=== PATIENT | female | born 2000 | race American Indian/Alaskan Native ===

== ENCOUNTER 2021-11-25 12:43 | Emergency (ER) | payer MEDICAID ==
[2021-11-25] MEDS ORDERED: HYOSCYAMINE SUBL 0.125 MG TAB SL ONE (15:08)
[2021-11-25] MEDS ORDERED: ONDANSETRON 4 MG ODT TAB PO ONE (15:08)
--- NOTE | 2021-11-25 15:12 | Emergency Department Report ---
ED Abdominal Pain HPI - General Chief Complaint: Abdominal Pain Stated Complaint: NAUSEA/ABDOMINAL PAIN/FEVER Time Seen by Provider: 11/25/21 15:00 Source: patient Mode of arrival: Ambulatory Limitations: No Limitations - History of Present Illness Initial Comments: Patient presents with a 3 to 4-week history of intermittent abdominal pain associate with nausea and vomiting. She has also had diarrhea. Around Jon, she actually became ill. She ultimately tested positive for coronavirus. Her boyfriend gave it to her. She had GI symptoms then. She has had persistent GI symptoms intermittently. She states that every day she has episodes of sharp stabbing abdominal pain associate with nausea and vomiting. The diarrhea has slowed down. She has not had hematemesis or coffee-ground emesis. There is no melenic stool. She does not have ongoing fevers or chills. She is here for evaluation and treatment because she just does not feel well. She feels weak in addition. - Related Data Allergies Allergy/AdvReac Type Severity Reaction Status Date / Time No Known Allergies Allergy Verified 11/25/21 13:20 ED Review of Systems ROS: Stated complaint: NAUSEA/ABDOMINAL PAIN/FEVER Other details as noted in HPI Comment: All other systems reviewed and negative Constitutional: denies: fever Eyes: denies: eye pain ENT: denies: throat pain Respiratory: denies: cough Cardiovascular: denies: chest pain Endocrine: denies: unexplained weight loss Gastrointestinal: as per HPI Genitourinary: abnormal menses (Patient reports having chronically heavy menses with heavy flow for 8 to 9 days.). denies: dysuria Musculoskeletal: denies: back pain Skin: denies: rash Neurological: denies: headache Hematological/Lymphatic: denies: easy bruising ED Past Medical Hx - Past Medical History Hx Sickle Cell Disease: Yes (Sickle cell trait) Additional medical history: Chronic anemia due to heavy menstruation - Family History Family history: no significant, other (Sickle cell disease) ED Physical Exam - General Limitations: No Limitations, Other (Pulse ox noted and normal) General appearance: alert, in no apparent distress - Head Head exam: Present: atraumatic, normocephalic - Eye Eye exam: Present: normal appearance, EOMI. Absent: scleral icterus - ENT ENT exam: Present: mucous membranes dry, normal external ear exam - Neck Neck exam: Present: normal inspection. Absent: meningismus - Respiratory Respiratory exam: Present: normal lung sounds bilaterally. Absent: respiratory distress - Cardiovascular Cardiovascular Exam: Present: regular rate, normal rhythm - GI/Abdominal GI/Abdominal exam: Present: soft. Absent: distended, tenderness - Extremities Exam Extremities exam: Present: normal capillary refill - Back Exam Back exam: Absent: CVA tenderness (R), CVA tenderness (L) - Neurological Exam Neurological exam: Present: alert, oriented X3, CN II-XII intact, normal gait. Absent: motor sensory deficit - Psychiatric Psychiatric exam: Present: normal affect, normal mood - Skin Skin exam: Present: warm, dry ED Course Vital Signs 11/25/21 13:17 Temperature 99 F Pulse Rate 91 H Respiratory 20 Rate Blood Pressure 178/110 [Left] O2 Sat by Pulse 100 Oximetry - Reevaluation(s) Reevaluation #1: 11/25/21 15:10 Labs and medications were ordered. Old records reviewed. Reevaluation #2: 11/25/21 17:35 Ultrasound was noted. UA is pending. ED Medical Decision Making - Lab Data Result diagrams: 11/25/21 15:21 11/25/21 15:21 - Radiology Data Radiology results: report reviewed - Medical Decision Making Patient present with abdominal symptoms. She thought these could be related to COVID or some other viral infection. She was found to be . Patient does not have evidence of ectopic . She did not have symptoms suggestive of appendicitis. There is no peritoneal finding on exam. She did not have tenderness in the right upper quadrant or upper abdomen suggestive of biliary disease. Patient did not have dysuria or frequency. She had no flank tenderness to suggest pyelonephritis. Patient was referred to her facility security officer for recheck and repeat evaluation of her laboratory studies. Critical Care Time: No Critical care attestation.: If time is entered above; I have spent that time in minutes in the direct care of this critically ill patient, excluding procedure time. ED Disposition Clinical Impression: Generalized abdominal pain Nausea & vomiting Qualifiers: Vomiting type: unspecified Qualified Code(s): R11.2 - Nausea with vomiting, unspecified Qualifiers: Weeks of gestation: 11 weeks Qualified Code(s): Z3A.11 - 11 weeks gestation of Disposition: HOME / SELF CARE / HOMELESS Is pt being admited?: No Condition: Stable Instructions: Nausea, Adult, and Travel, Abdominal Pain During , [id number], First Trimester of , [id number], How a Baby Grows During , Eating Plan for Women, Abdominal Pain (ED) Additional Instructions: Drink plenty water. Do not insert anything into the vagina until your symptoms have resolved. Follow-up with CORRECTIONAL SUBSTANCE ABUSE COUNSELOR for recheck. Return for problems. Use Tylen ol only for pain. Referrals: PRIMARY CAREMD [Primary Care Provider] - 3-5 Days CHAPARRO HERRERA MD [Staff Physician] - 3-5 Days
[2021-11-25 15:35] LABS: Hematocrit 32.8 % (30.3-42.9); Hemoglobin 10.3 gm/dl (10.1-14.3); Mean Corpuscular HGB Conc 31 % (30-34); Platelet Count 335 K/mm3 (140-440); Red Blood Count 5.62 M/mm3 (3.65-5.03)
[2021-11-25 15:37] LABS: Mean Corpuscular Volume 58 fl (79-97); Red Cell Distribution Width 22.4 % (13.2-15.2)
[2021-11-25 16:00] LABS: Alanine Aminotransferase 10 units/L (7-56); Albumin 4.8 g/dL (3.9-5); Blood Urea Nitrogen 7 mg/dL (7-17); Calcium 9.6 mg/dL (8.4-10.2); Hemolysis Index 0
[2021-11-25 16:17] LABS: BUN/Creatinine Ratio 12
[2021-11-25] MEDS ORDERED: POTASSIUM CHLORIDE ER 20 MEQ TAB PO ONE ×2 (16:18→20:41)
--- NOTE | 2021-11-25 16:44 | Ultrasound Report ---
ULTRASOUND OBSTETRIC Indication: Findings: There is a single, living intrauterine . Addis-rump length = 5.0 cm = 11 weeks, 5 day(s). heart rate is 167 beats per minute. Right ovary is normal. Left ovary is not visualized. No focal adnexal abnormality.. There is no free fluid. Impression: Single, living intrauterine with estimated sonographic age of 11 weeks, 5 day(s). Signer Name: Hernan Farley MD Signed: 11/25/2021 4:40 PM Workstation Name: [id number]
[2021-11-25 19:44] LABS: Bilirubin,Urine NEG (Negative); Blood,Urine NEG (Negative); Color,Urine Yellow (Yellow); Urobilinogen,Urine < 2.0 mg/dL (<2.0)
[2021-11-25 21:02] VITALS: BP 130/80
== END 2021-11-25 21:02 | disposition home or self-care (01) ==
LOC: ED 12:43
DX: O26.891 Other specified pregnancy related conditions, first trimester (principal); O21.8 Other vomiting complicating pregnancy; Z3A.11 11 weeks gestation of pregnancy; R10.9 Unspecified abdominal pain; D57.1 Sickle-cell disease without crisis
CPT/HCPCS: 36415; 76801; 80053; 81001; 83690; 84702; 84703; 85027; 99284; J3490; Q0162

== ENCOUNTER 2022-02-03 21:08 | Emergency (ER) | payer MEDICAID ==
[2022-02-03] MEDS ORDERED: METOCLOPRAMIDE 10 MG TAB PO ONE (21:17)
[2022-02-03] MEDS ORDERED: ACETAMINOPHEN 325 MG TAB PO ONE (21:17)
--- NOTE | 2022-02-03 21:18 | Emergency Department Report ---
ED General Adult HPI - General Chief complaint: Vaginal Bleeding Stated complaint: VAGINAL BLEEDING/AB PAIN/HEADACHES Time Seen by Provider: 02/03/22 21:16 Source: patient, RN notes reviewed, old records reviewed Mode of arrival: Ambulatory Limitations: No Limitations - History of Present Illness Initial comments: During the history and physical examination, I am chaperoned by nurse Dheeraj Jeff This is a 21-year-old female. She is 2, para 1. She reports a history of sickle cell disease. [place] She currently does not have a high risk [facility] physician. She presents to the ER today with a complaint of lower abdominal cramping and vaginal bleeding without dysuria. This has been going on for about 2 days. No fever, positive nausea, no vomiting, no recent antibiotic use, reports no illicit drug use. Reports one sexual partner with no history of STI. She endorses no other complaints of headache. The headache is bitemporal. The headache is intermittent over the past week. The headache is not sudden or thunderclap in nature. The headache is not maximal in intensity. The headache is not described as the worst headache of her life. Patient believes she has taken medication at home for her symptoms, but does not recall the name of the medications. -: days(s) Location: head, abdomen Quality: aching Consistency: intermittent Improves with: none Worsens with: none - Related Data Previous Rx's Medication Instructions Recorded Last Taken Type Metoclopramide [Reglan] 10 mg PO ACHS PRN #90 tablet 11/25/21 Unknown Rx Acetaminophen [Non-Aspirin Extra 500 mg PO Q6HR PRN #30 tablet 02/03/22 Unknown Rx Strength] Doxylamine Succinate/Vit B6 1 each PO QHS PRN #30 tablet. 02/03/22 Unknown Rx [Paige Cohen 10-10 mg Tablet] Ferrous Sulfate [Feosol 325 MG tab] 325 mg PO BID #60 tablet 02/03/22 Unknown Rx Bryan Root [Bryan] 250 mg PO QID PRN #30 capsule 02/03/22 Unknown Rx Metoclopramide [Reglan] 10 mg PO QID PRN #30 tablet 02/03/22 Unknown Rx Vit-Fe Fumar-FA [ 1 tab PO QDAY #30 tablet 02/03/22 Unknown Rx Vitamin] Allergies Allergy/AdvReac Type Severity Reaction Status Date / Time No Known Allergies Allergy Verified 11/25/21 13:20 ED Review of Systems ROS: Stated complaint: VAGINAL BLEEDING/AB PAIN/HEADACHES Other details as noted in HPI Constitutional: denies: fever Eyes: denies: eye discharge, vision change ENT: denies: throat pain, epistaxis Respiratory: denies: cough Cardiovascular: denies: chest pain, syncope Gastrointestinal: as per HPI, abdominal pain, nausea. denies: melena, hematochezia Genitourinary: other (Reports vaginal bleed). denies: dysuria Neurological: headache. denies: weakness ED Past Medical Hx - Past Medical History Hx Sickle Cell Disease: Yes (Sickle cell trait) Additional medical history: Chronic anemia due to heavy menstruation - Medications Home Medications: Home Medications Medication Instructions Recorded Confirmed Last Taken Type Metoclopramide [Reglan] 10 mg PO ACHS PRN #90 tablet 11/25/21 Unknown Rx Acetaminophen [Non-Aspirin Extra 500 mg PO Q6HR PRN #30 tablet 02/03/22 Unknown Rx Strength] Doxylamine Succinate/Vit B6 1 each PO QHS PRN #30 tablet. 02/03/22 Unknown Rx [Diclegis Dr 10-10 mg Tablet] Ferrous Sulfate [Feosol 325 MG tab] 325 mg PO BID #60 tablet 02/03/22 Unknown Rx Bryan Root [Bryan] 250 mg PO QID PRN #30 capsule 02/03/22 Unknown Rx Metoclopramide [Reglan] 10 mg PO QID PRN #30 tablet 02/03/22 Unknown Rx Vit-Fe Fumar-FA [ 1 tab PO QDAY #30 tablet 02/03/22 Unknown Rx Vitamin] ED Physical Exam - General Limitations: No Limitations General appearance: alert, in no apparent distress - Head Head exam: Present: atraumatic, normocephalic - Eye Eye exam: Present: normal appearance, PERRL, EOMI. Absent: nystagmus - ENT ENT exam: Present: normal exam, mucous membranes moist, TM's normal bilaterally, normal external ear exam - Neck Neck exam: Present: normal inspection, full ROM. Absent: tenderness, meningismus - Respiratory Respiratory exam: Present: normal lung sounds bilaterally. Absent: respiratory distress, wheezes, rales, rhonchi, stridor, decreased breath sounds - Cardiovascular Cardiovascular Exam: Present: regular rate, normal rhythm, normal heart sounds. Absent: bradycardia, tachycardia, irregular rhythm, systolic murmur, diastolic murmur, rubs, gallop - GI/Abdominal GI/Abdominal exam: Present: soft, normal bowel sounds. Absent: distended, tenderness, guarding, rebound, rigid, pulsatile mass - External exam: Present: normal external exam, other (Chaperoned by nurse Osiris Jeff). Absent: erythema, swelling, lesions, lacerations, ecchymosis, bleeding - Extremities Exam Extremities exam: Present: normal inspection, full ROM, other (2+ pulses noted in the bilateral upper and lower extremities. There is no palpable cord. negative Homans sign. Muscular compartments are soft. The pelvis is stable.). Absent: pedal edema, calf tenderness - Back Exam Back exam: Present: normal inspection, full ROM. Absent: tenderness, CVA tenderness (R), CVA tenderness (L), paraspinal tenderness, vertebral tenderness - Neurological Exam Neurological exam: Present: alert, oriented X3, normal gait, other (No facial droop. Tongue midline. Extraocular movements intact bilaterally. Facial sensation intact to light touch in V1, V2, V3 distribution bilaterally. 5 and a 5 strength in 4 extremities. Sensation intact to light touch in 4 extremiti es.). Absent: motor sensory deficit - Psychiatric Psychiatric exam: Present: normal affect, normal mood - Skin Skin exam: Present: warm, dry, intact, normal color. Absent: rash ED Course Vital Signs 02/03/22 02/03/22 02/03/22 21:14 21:15 21:25 Temperature 98.2 F Pulse Rate 104 H Respiratory 16 18 Rate Blood Pressure 117/79 O2 Sat by Pulse 100 97 Oximetry - Reevaluation(s) Reevaluation #1: 02/03/22 22:50 Differential diagnosis, including but not limited to: Migraine headache, tension headache, cluster headache, sleep deprivation, excessive cell phone use, placenta previa, miscarriage Assessment and plan: 21-year-old female, with multiple complaints. In terms of her complaint of abdominal cramping and vaginal bleeding, her abdomen is soft and benign, without rebound, guarding or peritoneal signs. She has no vaginal bleeding on my examination. Ultrasound confirms IUP without evidence of placenta previa. Patient is in no acute distress, and she is found to have a 21-week intrauterine . Tylenol, Reglan, expectant management. Urinalysis pending. Also counseled to not have sex until cleared to do so by her band saw filer. Also counseled to follow-up with outpatient high risk or [facility], given her articulated history of sickle cell disease. She is clinically sober at this time. Urinalysis is contaminated, but does not have any bacteria, and she denies irritative and obstructive urinary symptoms. Urine toxicology screen shows presence of cannabis. Patient advised to avoid/abstain from marijuana consumption and use. Patient told me that she does not consume any recreational drugs. In terms of the patient's headache, she is well-appearing with a GCS of 15, and a benign and unremarkable neurologic examination. Patient reports poor sleep hygiene, and reports excessive cellular phone use. Advised to minimize cell phone use and screen time. Advised to get at least 7 or 8 hours of good quality uninterrupted sleep each evening. Presuming laboratory studies unremarkable, outpatient follow-up with expectant management 02/03/22 23:22 Patient resting comfortably in stretcher. She is in no acute distress. Leukocytosis is likely secondary to physiology of . Microcytic anemia reviewed and appreciated. Start iron sulfate. Chemistry unremarkable. Urinalysis contaminated. Resting comfortably in stretcher, and in no acute distress. Discharged with outpatient follow-up. Start iron sulfate. Return precautions reviewed. ED Medical Decision Making - Lab Data Result diagrams: 02/03/22 22:22 02/03/22 22:22 Vital Signs 02/03/22 02/03/22 02/03/22 21:14 21:15 21:25 Temperature 98.2 F Pulse Rate 104 H Respiratory 16 18 Rate Blood Pressure 117/79 O2 Sat by Pulse 100 97 Oximetry Lab Results 02/03/22 02/03/22 Range/Units 21:30 21:30 Urine Color Yellow (Yellow) Urine Turbidity Slightly-cloudy (Clear) Urine pH 5.0 (5.0-7.0) Ur Specific [place] 1.017 (1.003-1.030) Urine Protein <15 mg/dl (Negative) mg/dL Urine Glucose (UA) Neg (Negative) mg/dL Urine Ketones Neg (Negative) mg/dL Urine Blood Mod (Negative) Urine Nitrite Neg (Negative) Urine Bilirubin Neg (Negative) Urine Urobilinogen 2.0 (<2.0) mg/dL Ur Leukocyte Esterase Mod (Negative) Urine WBC (Auto) 23.0 H (0.0-6.0) /HPF Urine RBC (Auto) 30.0 (0.0-6.0) /HPF U Epithel Cells (Auto) 29.0 H (0-13.0) /HPF Calcium Oxalate Crystal 1+ Urine Mucus Few /HPF U Marijuana (THC) Screen Presumptive positive Lab Results 02/03/22 02/03/22 02/03/22 Range/Units 21:30 21:30 22:22 WBC 17.0 H (4.5-11.0) K/mm3 RBC 4.26 (3.65-5.03) M/mm3 Hgb 8.6 L (10.1-14.3) gm/dl Hct 26.4 L (30.3-42.9) % MCV 62 L (79-97) fl MCH 20 L (28-32) pg MCHC 33 (30-34) % RDW 18.8 H (13.2-15.2) % Plt Count 342 (140-440) K/mm3 Lymph % (Auto) 15.4 (13.4-35.0) % [place] % (Auto) 5.7 (0.0-7.3) % Eos % (Auto) 0.6 (0.0-4.3) % Baso % (Auto) 0.4 (0.0-1.8) % Lymph # (Auto) 2.6 (1.2-5.4) K/mm3 [place] # (Auto) 1.0 H (0.0-0.8) K/mm3 Eos # (Auto) 0.1 (0.0-0.4) K/mm3 Baso # (Auto) 0.1 (0.0-0.1) K/mm3 Seg Neutrophils % 77.9 H (40.0-70.0) % Seg Neutrophils # 13.2 H (1.8-7.7) K/mm3 PT (12.2-14.9) Sec. INR (0.87-1.13) Sodium (137-145) mmol/L Potassium (3.6-5.0) mmol/L Chloride (98-107) mmol/L Carbon Dioxide (22-30) mmol/L Anion Gap mmol/L BUN (7-17) mg/dL Creatinine (0.6-1.2) mg/dL Estimated GFR ml/min BUN/Creatinine Ratio % Glucose (65-100) mg/dL Calcium (8.4-10.2) mg/dL Total Bilirubin (0.1-1.2) mg/dL AST (5-40) units/L ALT (7-56) units/L Alkaline Phosphatase (35-129) units/L Total Protein (6.3-8.2) g/dL Albumin (3.9-5) g/dL Albumin/Globulin Ratio % HCG, Quant (0-4) mIU/mL Urine Color Yellow (Yellow) Urine Turbidity Slightly-cloudy (Clear) Urine pH 5.0 (5.0-7.0) Ur Specific [place] 1.017 (1.003-1.030) Urine Protein <15 mg/dl (Negative) mg/dL Urine Glucose (UA) Neg (Negative) mg/dL Urine Ketones Neg (Negative) mg/dL Urine Blood Mod (Negative) Urine Nitrite Neg (Negative) Urine Bilirubin Neg (Negative) Urine Urobilinogen 2.0 (<2.0) mg/dL Ur Leukocyte Esterase Mod (Negative) Urine WBC (Auto) 23.0 H (0.0-6.0) /HPF Urine RBC (Auto) 30.0 (0.0-6.0) /HPF U Epithel Cells (Auto) 29.0 H (0-13.0) /HPF Calcium Oxalate Crystal 1+ Urine Mucus Few /HPF Urine Opiates Screen Presumptive negative Urine Methadone Screen Presumptive negative Ur Barbiturates Screen Presumptive negative Ur Phencyclidine Scrn Presumptive negative Ur Amphetamines Screen Presumptive negative U Benzodiazepines Scrn Presumptive negative Urine Cocaine Screen Presumptive negative U Marijuana (THC) Screen Presumptive positive Drugs of Abuse Note Disclamer 02/03/22 02/03/22 02/03/22 Range/Units 22:22 22:22 22:22 WBC (4.5-11.0) K/mm3 RBC (3.65-5.03) M/mm3 Hgb (10.1-14.3) gm/dl Hct (30.3-42.9) % MCV (79-97) fl MCH (28-32) pg MCHC (30-34) % RDW (13.2-15.2) % Plt Count (140-440) K/mm3 Lymph % (Auto) (13.4-35.0) % Sevier % (Auto) (0.0-7.3) % Eos % (Auto) (0.0-4.3) % Baso % (Auto) (0.0-1.8) % Lymph # (Auto) (1.2-5.4) K/mm3 Sevier # (Auto) (0.0-0.8) K/mm3 Eos # (Auto) (0.0-0.4) K/mm3 Baso # (Auto) (0.0-0.1) K/mm3 Seg Neutrophils % (40.0-70.0) % Seg Neutrophils # (1.8-7.7) K/mm3 PT 12.9 (12.2-14.9) Sec. INR 0.88 (0.87-1.13) Sodium 133 L (137-145) mmol/L Potassium 3.9 (3.6-5.0) mmol/L Chloride 103.3 (98-107) mmol/L Carbon Dioxide 20 L (22-30) mmol/L Anion Gap 14 mmol/L BUN 5 L (7-17) mg/dL Creatinine 0.5 L (0.6-1.2) mg/dL Estimated GFR > 60 ml/min BUN/Creatinine Ratio 10 % Glucose 83 (65-100) mg/dL Calcium 9.1 (8.4-10.2) mg/dL Total Bilirubin 0.20 (0.1-1.2) mg/dL AST 10 (5-40) units/L ALT < 5 L (7-56) units/L Alkaline Phosphatase 53 (35-129) units/L Total Protein 7.0 (6.3-8.2) g/dL Albumin 3.7 L (3.9-5) g/dL Albumin/Globulin Ratio 1.1 % HCG, Quant 5909 H (0-4) mIU/mL Urine Color (Yellow) Urine Turbidity (Clear) Urine pH (5.0-7.0) Ur Specific [place] (1.003-1.030) Urine Protein (Negative) mg/dL Urine Glucose (UA) (Negative) mg/dL Urine Ketones (Negative) mg/dL Urine Blood (Negative) Urine Nitrite (Negative) Urine Bilirubin (Negative) Urine Urobilinogen (<2.0) mg/dL Ur Leukocyte Esterase (Negative) Urine WBC (Auto) (0.0-6.0) /HPF Urine RBC (Auto) (0.0-6.0) /HPF U Epithel Cells (Auto) (0-13.0) /HPF Calcium Oxalate Crystal Urine Mucus /HPF Urine Opiates Screen Urine Methadone Screen Ur Barbiturates Screen Ur Phencyclidine Scrn Ur Amphetamines Screen U Benzodiazepines Scrn Urine Cocaine Screen U Marijuana (THC) Screen Drugs of Abuse Note - Radiology Data Radiology results: pending, report reviewed, image reviewed ULTRASOUND OBSTETRIC, 02/03/2022 CLINICAL INFORMATION/INDICATION: Vaginal bleeding and cramping in COMPARISON: Obstetrical ultrasound, 11/25/2021 FINDINGS: There is a single intrauterine . BPD = 5.1 cm = 21 weeks, 3 day(s). Head circumference = 19 cm = 21 weeks, 2 day(s). Abdominal circumference = 16.9 cm = 22 weeks, 0 day(s). Femur length = 3.5 cm = 21 weeks, 0 day(s). Overall estimated sonographic age = 21 weeks, 3 day(s). heart rate is 133 beats per minute. position is breech. Placenta is posterior and grade 0 . Amniotic fluid volume appears within normal limits measuring 4.2 cm. Impression: 1. Single living intrauterine with estimated sonographic age of 21 weeks, 3 day(s). Signer Name: Marianne French MD Signed: 02/03/2022 9:16 PM Workstation Name: [id number] Critical care attestation.: If time is entered above; I have spent that time in minutes in the direct care of this critically ill patient, excluding procedure time. ED Disposition Clinical Impression: History of vaginal bleeding, Microcytic anemia Qualifiers: Weeks of gestation: 21 weeks Qualified Code(s): Z3A.21 - 21 weeks gestation of Headache Qualifiers: Headache type: unspecified Headache chronicity pattern: episodic headache Intractability: not intractable Qualified Code(s): R51.9 - Headache, unspecified Disposition: 01 HOME / SELF CARE / HOMELESS Is pt being admited?: No Does the pt Need Aspirin: No Condition: Good Instructions: Vaginal Bleeding During , Second Trimester Additional Instructions: We recommend that the patient get at least 7 to 8 hours of good quality uninterrupted sleep each evening. We also recommend that the patient minimize cell phone use, and screen time exposures, to assist with headache medication. Patient may take the Reglan medication in addition to Tylenol medication as needed for complaints of headache, with nausea and vomiting. Patient should take the vitamins on a daily basis as directed. We also recommend that the patient may take bryan medication as needed for nausea and vomiting, in addition to the prescribed Diclegis. Given patient's articulated history of sickle cell disease, it is strongly advised that the patient follow-up with a high risk specialist, such as [facility] [place], as soon as possible. We also recommended the patient follow-up with her outpatient band saw filer within the next week. Urine drug screen is positive for marijuana. If patient is consuming or being exposed to marijuana, strongly advised discontinuation, as this may have adverse effects on . Please return to the emergency room right away with new pain, worsened pain, migration of pain, projectile vomiting, change in mental status, confusion, inability tolerate liquid feeds, new, worsened or different symptoms not present on the initial emergency room evaluation We also recommend that the patient avoid heavy lifting, sex, sexual activity, until cleared to resume by her band saw filer. Patient is found to have mild anemia. Please take the iron sulfate medication as directed. This medication may cause black stool, abdominal cramping, and constipation. Alternatively, patient may consume foods that are high in iron, such as green vegetables, multivitamins, as well as sufficient protein, such as not found in chicken, salmon, or beef/poultry/pork Prescriptions: Doxylamine Succinate/Vit B6 [Diclegis Dr 10-10 mg Tablet] 1 each PO QHS PRN #30 tablet. PRN Reason: Nausea Bryan Root [Bryan] 250 mg PO QID PRN #30 capsule PRN Reason: Nausea Acetaminophen [Non-Aspirin Extra Strength] 500 mg PO Q6HR PRN #30 tablet PRN Reason: Pain , Severe (7-10) Vit-Fe Fumar-FA [ Vitamin] 1 tab PO QDAY #30 tablet Metoclopramide [Reglan] 10 mg PO QID PRN #30 tablet PRN Reason: Nausea Referrals: [facility] [Provider Group] - 3-5 Days JACQUELINE INTERIANO MD [Staff Physician] - 3-5 Days Forms: Work/School Release Form(ED)
[2022-02-03 22:07] LABS: Bilirubin,Urine NEG (Negative); Blood,Urine MOD (Negative); Calcium Oxalate Crystals,Urine 1+; Color,Urine Yellow (Yellow); Mucus,Urine FEW /HPF; Protein,Urine <15 mg/dL mg/dL (Negative)
--- NOTE | 2022-02-03 22:21 | Ultrasound Report ---
ULTRASOUND OBSTETRIC, 02/03/2022 CLINICAL INFORMATION/INDICATION: Vaginal bleeding and cramping in COMPARISON: Obstetrical ultrasound, 11/25/2021 FINDINGS: There is a single intrauterine . BPD = 5.1 cm = 21 weeks, 3 day(s). Head circumference = 19 cm = 21 weeks, 2 day(s). Abdominal circumference = 16.9 cm = 22 weeks, 0 day(s). Femur length = 3.5 cm = 21 weeks, 0 day(s). Overall estimated sonographic age = 21 weeks, 3 day(s). heart rate is 133 beats per minute. position is breech. Placenta is posterior and grade 0 . Amniotic fluid volume appears within normal limits measuring 4.2 cm. Impression: 1. Single living intrauterine with estimated sonographic age of 21 weeks, 3 day(s). Signer Name: Marianne French MD Signed: 02/03/2022 10:16 PM Workstation Name: [id number]
[2022-02-03 22:44] LABS: Amphetamine Screen,Urine PRESUMPTIVE NEGATIVE; Benzodiazepines Screen,Urine PRESUMPTIVE NEGATIVE; Cannabinoid Screen,Urine PRESUMPTIVE POSITIVE; Cocaine Screen,Urine PRESUMPTIVE NEGATIVE; Methadone Screen,Urine PRESUMPTIVE NEGATIVE; Opiate Screen,Urine PRESUMPTIVE NEGATIVE
[2022-02-03 22:56] LABS: Basophils # (Auto) 0.1 K/mm3 (0.0-0.1); Basophils % (Auto) 0.4 % (0.0-1.8); Eosinophils # (Auto) 0.1 K/mm3 (0.0-0.4); Eosinophils % (Auto) 0.6 % (0.0-4.3); Hematocrit 26.4 % (30.3-42.9); Hemoglobin 8.6 gm/dl (10.1-14.3); Lymphocytes # (Auto) 2.6 K/mm3 (1.2-5.4); Lymphocytes % (Auto) 15.4 % (13.4-35.0); Mean Corpuscular HGB Conc 33 % (30-34); Monocytes % (Auto) 5.7 % (0.0-7.3); Platelet Count 342 K/mm3 (140-440); Red Blood Count 4.26 M/mm3 (3.65-5.03); Red Cell Distribution Width 18.8 % (13.2-15.2)
[2022-02-03 23:10] LABS: INR 0.88 (0.87-1.13)
[2022-02-03 23:15] LABS: Albumin 3.7 g/dL (3.9-5); BUN/Creatinine Ratio 10; Blood Urea Nitrogen 5 mg/dL (7-17); Calcium 9.1 mg/dL (8.4-10.2); Hemolysis Index 2
[2022-02-03 23:16] LABS: Alanine Aminotransferase < 5 units/L (7-56); Mean Corpuscular Volume 62 fl (79-97)
[2022-02-03 23:47] VITALS: BP 115/69
== END 2022-02-03 23:40 | disposition home or self-care (01) ==
LOC: ED 21:08
DX: O46.8X2 Other antepartum hemorrhage, second trimester (principal); D50.9 Iron deficiency anemia, unspecified; R51.9 Headache, unspecified; D57.1 Sickle-cell disease without crisis; Z3A.21 21 weeks gestation of pregnancy; Z79.899 Other long term (current) drug therapy
CPT/HCPCS: 36415; 76805; 80053; 80307; 81001; 84702; 85025; 85610; 86850; 86900; 86901; 87086; 99284

== ENCOUNTER 2022-03-18 07:17 | Emergency (ER) | payer BC, MEDICAID ==
--- NOTE | 2022-03-18 07:34 | Emergency Department Report ---
Blank Doc - Documentation Documentation: 21-year-old female that presents with chest pain and shortness of breath. Pat ient is 27 weeks . Denies any vaginal bleeding or abdominal pain. 1- This is a initial triage assessment/medical screening only. Full assessment and work-up will be completed once the patient is in proper hospital gown, ED bed and in a private room setting. This initial assessment/diagnostic orders/clinical plan/ treatment(s) is/are subject to change based on pt's health status, clinical progression and re-assessment by fellow clinical providers in the ED. Further treatment and workup at subsequent clinical providers discretion. Patient/guardians urged not to elope from ED as their condition may be serious if not clinically assessed and managed. 2-cardiac work-up The patient was evaluated in the emergency department for symptoms described in the history of present illness. He/she was evaluated in the context of the global COVID-19 pandemic, which necessitated consideration that the patient might be at risk for infection with the virus that causes COVID-19. Institutional protocols and algorithms that pertain to the evaluation of patients at risk for COVID-19 are in a state of rapid change based on information released by regulatory bodies including the CDC and federal and state organizations. These policies and algorithms were followed during the patient's care in the emergency department. Please note that these policies, procedures and recommendations changed on a rapid basis.
[2022-03-18 07:39] VITALS: BP 112/73
[2022-03-18 08:17] LABS: Basophils # (Auto) 0.1 K/mm3 (0.0-0.1); Basophils % (Auto) 0.5 % (0.0-1.8); Eosinophils # (Auto) 0.1 K/mm3 (0.0-0.4); Eosinophils % (Auto) 0.6 % (0.0-4.3); Hematocrit 24.1 % (30.3-42.9); Hemoglobin 7.8 gm/dl (10.1-14.3); Lymphocytes # (Auto) 3.5 K/mm3 (1.2-5.4); Lymphocytes % (Auto) 17.4 % (13.4-35.0); Mean Corpuscular HGB Conc 32 % (30-34); Monocytes # (Auto) 1.3 K/mm3 (0.0-0.8); Monocytes % (Auto) 6.6 % (0.0-7.3); Platelet Count 342 K/mm3 (140-440); Red Blood Count 4.09 M/mm3 (3.65-5.03); Red Cell Distribution Width 18.4 % (13.2-15.2)
[2022-03-18 08:19] LABS: Mean Corpuscular Volume 59 fl (79-97)
[2022-03-18 08:28] LABS: INR 0.88 (0.87-1.13)
[2022-03-18 08:29] LABS: Partial Thromboplastin Time 29.7 Sec. (24.2-36.6)
[2022-03-18 08:37] LABS: Alanine Aminotransferase 6 units/L (7-56); Albumin 3.8 g/dL (3.9-5); Blood Urea Nitrogen 5 mg/dL (7-17); Calcium 8.6 mg/dL (8.4-10.2); Hemolysis Index 2
[2022-03-18 08:38] LABS: BUN/Creatinine Ratio 8
--- NOTE | 2022-03-20 18:47 | Electrocardiograph Report ---
[facility], [place] Test Date: 2022-03-18 Test Time: 07:43:27 Pat Name: GIANFRANCO HERNANDEZ Department: Room: Gender: F Flag Signalman: ADRIAN : 2000 Requested By: FELICITAS PULIDO Order Number: [id number] Reading MD: Katalina Monsivais Measurements Intervals [place] Rate: 88 P: 64 PA: 146 QRS: 41 QRSD: 90 T: 34 QT: 367 QTc: 445 Interpretive Statements Sinus rhythm No previous ECG available for comparison Electronically Signed On 03-20-2022 18:46:55 EDT by Katalina Monsivais
== END 2022-03-18 13:50 | disposition left against medical advice (07) ==
LOC: ED 07:17
DX: O26.892 Other specified pregnancy related conditions, second trimester (principal); R07.89 Other chest pain; H92.02 Otalgia, left ear; Z53.21 Procedure and treatment not carried out due to patient leaving prior to being seen by health care provider; Z3A.27 27 weeks gestation of pregnancy
CPT/HCPCS: 36415; 80053; 84484; 84702; 85025; 85610; 85730; 93005

== ENCOUNTER 2022-05-01 15:18 | Outpatient (CLI) | payer BC, MEDICAID ==
[2022-05-01 16:22] VITALS: BP 125/75
[2022-05-01] MEDS ORDERED: LACTATED RINGERS 1,000 ML IV ONE (17:00)
[2022-05-01 17:11] LABS: Bilirubin,Urine NEG (Negative); Blood,Urine NEG (Negative); Color,Urine Yellow (Yellow); Protein,Urine <15 mg/dL mg/dL (Negative)
[2022-05-01 17:21] LABS: Bacteria,Urine 1+ /HPF (Negative); Mucus,Urine 2+ /HPF
--- NOTE | 2022-05-01 18:38 | Ultrasound Report ---
ULTRASOUND BIOPHYSICAL PROFILE INDICATION: well being. Evaluate for ruptured membranes COMPARISON: None available. FINDINGS: breathing movement = 2 Gross body movement = 2 tone = 2 Qualitative amniotic fluid volume = 2 Total biophysical score = 8/8 Amniotic fluid index is 9.6 cm. Presentation is Cephalic. heart rate is 143 beats per minute. IMPRESSION: biophysical profile = 88 Amniotic fluid index is 9.6 cm, within normal limits. Signer Name: Renato Fernandez MD Signed: 05/01/2022 6:34 PM Workstation Name: [id number]
== END 2022-05-01 19:27 | disposition home or self-care (01) ==
LOC: TRG 15:18 → APU 15:45 → TRG 19:27
PROVIDERS: ATTEND Obstetrics & Gynecology
DX: O26.893 Other specified pregnancy related conditions, third trimester (principal); R10.9 Unspecified abdominal pain; Z3A.34 34 weeks gestation of pregnancy
CPT/HCPCS: 36415; 59025; 76815; 76819; 81001; 82731